=== PATIENT | female | born 1995 | race Caucasian/White ===

== ENCOUNTER 2017-01-03 05:34 | Inpatient (IN) | payer MEDICAID ==
[~2017-01-03] VITALS: Ht 167.6 cm; Wt 84.0 kg
[~2017-01-03 05:34] MED LIST: PREN1TAB77 PO
[2017-01-03] MEDS ORDERED: ACETAMINOPHEN 500 MG TABLET PO PRN ×2 (05:45→11:00)
[2017-01-03] MEDS ORDERED: LIDOCAINE 1% (10mg/ml) 2ml SDV ID PRN (05:45)
[2017-01-03] MEDS ORDERED: OXYTOCIN 30 UNIT in D5LR 500 ML PRN (05:45)
[2017-01-03] MEDS ORDERED: CALCIUM CARBONATE 500mg Chewable TAB PO PRN ×2 (05:45→11:00)
[2017-01-03] MEDS ORDERED: MAG-AL + SIM LIQUID 30 ML UDC PO PRN ×2 (05:45→11:00)
[2017-01-03 06:16] VITALS: BP 116/76; PULSE 72; RESP 16; TEMP 98; O2SAT 99
[2017-01-03 06:18] LABS: HCT - HEMATOCRIT 34.8 % (36-46); HGB - HEMOGLOBIN 11.2 GM/DL (12-16); MEAN CORPUSCULAR HGB 27.3 UUG (26-34); MEAN CORPUSCULAR HGB CONC(MCHC 32.2 GM/DL (31-37); MEAN CORPUSCULAR VOLUME 84.9 UM3 (80-100); MEAN PLATELET VOLUME 10.8 UM3 (9.4-12.4); RED BLOOD COUNT 4.1 M/MM3 (4.00-5.20); WBC - WHITE BLOOD COUNT 10.7 T/MM3 (4.5-11.0)
[2017-01-03] MEDS: LR 1,000 ML IV PRN ×2 (06:29→09:42)
[2017-01-03] MEDS ORDERED: D5LR 1,000 ML IV PRN (06:45)
[2017-01-03] MEDS ORDERED: AMPICILLIN 2 G in NORMAL SALINE 100 ML IV ONE (07:00)
--- NOTE | 2017-01-03 07:58 | ANESOB ---
Epidural/ Date/Time DATE: 01/03/17 TIME: 07:55 Preop Diagnosis , induction 39 2/7 weeks Procedure: Labor Epidural Plan: Epidural Height: 5 ' 6.00 " Weight: 84.000 kg BMI: kg/m2 Blood Pressure: 119/67 Heart Rate: 59 Respiratory Rate: 20 NPO since: 2100 P:1 Heart Rate: 131 Medications & Allergies Inpatient Medications Current Medications Medications (Trade) Dose Ordered Sig/Vanesa Start Time Stop Time Status Last Admin Dose Admin Lidocaine HCl 0.2 mg 0.2 mg PRN PRN 01/03/17 05:45 Lactated Ringer's (Lactated Ringers) 1,000 ml @ 0 mls/hr Q0M PRN 01/03/17 05:44 01/03/17 06:29 0 MLS/HR Acetaminophen (Tylenol Extra Strength) 1-2 TABS = 500-1,000 MG Q4H PRN 01/03/17 05:45 Al Hydroxide/Mg Hydroxide (Maalox) 30 ml Q4H PRN 01/03/17 05:45 Calcium Carbonate 1-2 TABS Q2H PRN 01/03/17 05:45 Dextrose/Lactated Ringer's 1,000 ml @ 0 mls/hr Q0M PRN 01/03/17 06:45 01/03/17 07:11 0 MLS/HR Oxytocin 30 unit/ Dextrose/Lactated Ringer's 503 ml @ 0 mls/hr Q0M PRN 01/03/17 05:45 01/03/17 07:11 0 MLS/HR Ampicillin Sodium/ Sodium Chloride (Ampicillin/NS) 100 ml @ 200 mls/hr Q4H 01/03/17 11:00 Vits W-Ca,Fe,FA(<1Mg) ( Vitamins) 1 Each Tablet, 1 TAB PO DAILY , (Reported) Last Taken: on 01/01/17 0800 Coded Allergies: No Known Allergies (Unverified , 01/03/17) Medical/Surgical History Anesthesia PMH: Denies: Anesthesia Reactions, Malignant Hyperthermia Smoking Status: Never smoker Does patient use chewing tobac: No Second Hand Exposure: No Substance Use Type: does not use Alcohol Intake: none Anesthesia Adverse Reactions: FOUND none Family Hx of Anesthesia Advers: none Hx of Motion Sickness: No Complications During : No Pertinent Findings Laboratory Tests 01/03/17 06:10 Physical Exam Respiratory: Lungs clear Cardiovascular: Regular rate, rhythm Airway Assessment Mallampati Score: I TMD: 3 Fingerbreadths Neck Extension: Good Overall Assessment: No Airway Concerns ASA: 2 Discussion Discussed risks/options/alternatives of anesthesia. Patient consents. Nursing pain assessment noted. Present for Discussion: Present: Family Member Attestation Statement Prior to the delivery of any anesthetic medication, I examined the patient, developed the plan, obtained the patient's consent and discussed the risk and benefits of the procedure with the patient/guardian. If the note happens to be signed after anesthesia start time, it is only due to providing efficient care of the patient and documenting at a time when the computer is available. LLOYD MALCOLM CRNA Jan 03, 2017 07:58
[2017-01-03] MEDS ORDERED: LIDOCAINE 2%/EPI 1:200,000 20ml SDV ONE (10:27)
[2017-01-03] MEDS ORDERED: OXYTOCIN 30 UNIT in D5W 500 ML IV ONE (10:52)
[2017-01-03] MEDS ORDERED: DiphenhydrAMINE 50 MG/ML INJECTION IV PRN (11:00)
[2017-01-03] MEDS ORDERED: ROPIVACAINE 1% 200 MG, SUFENTANIL 50 MCG in NORMAL SALINE 80 ML EPI PRN (11:00)
[2017-01-03] MEDS ORDERED: AMPICILLIN 1 G in NORMAL SALINE 100 ML IV SCH (11:00)
[2017-01-03] MEDS ORDERED: MILK OF MAGNESIA 30 ML SUSP PO PRN (11:00)
[2017-01-03] MEDS ORDERED: PHENYLEPHRINE RECTAL SUPPOSITORY RECTALLY PRN (11:00)
[2017-01-03] MEDS ORDERED: ONDANSETRON 4mg/2ml INJECTION IV PRN (11:00)
[2017-01-03] MEDS ORDERED: NALOXONE 0.4mg/ml INJECTION IV PRN (11:00)
[2017-01-03] MEDS ORDERED: DiphenhydrAMINE 25 MG CAPSULE PO PRN (11:00)
[2017-01-03] MEDS ORDERED: HYDROCODONE/APAP 5 mg/325 mg TABLET PO PRN (11:00)
[2017-01-03] MEDS ORDERED: HYDROCORTISONE 2.5% CREAM 30 GM RECTALLY PRN (11:00)
--- NOTE | 2017-01-03 12:31 | LDNFPDOC ---
Delivery Note Date of Delivery 01/03/17 Diagnosis: : 2 Para: 1 Rubella: Immune GBS Status: Positive Weeks: 39 Days: 2 Sex and Viability: Viable Female APGARS: Name: Catarino [place] Weight: 3030 grams Estimated Blood Loss: 400 cc Brief Description Patient is a 21 year old, 2, para 1 who presented to labor and delivery at 39 weeks 2 days for scheduled induction of labor due to logistics. Antepartum and complications included possible mild cardiomegaly (though echocardiogram was within normal limits and did not show any defects) and GBS positivity. On admission, patient was dilated to 2 centimeters. Ampicillin was started for GBS prophylaxis followed by pitocin per protocol for induction of labor. Spontaneous rupture of membranes occurred 3 hours later and patient started to feel painful contractions. Epidural anesthesia was performed at that time for analgesia. Patient progressed to complete dilation within an hour. No other complication noted. Patient remained in the labor room, was prepped and draped in the usual sterile fashion. delivered spontaneously over a very small first degree perineal laceration. There was a loose nuchal cord noted upon delivery of the head so it was easily reduced. The was placed on the patient's abdomen for [id number] after she had a good vigorous cry. The cord was clamped and cut, and the placenta spontaneously delivered without difficulty. The perineal laceration was repaired in the usual fashion using 3-0 chromic. A vaginal sweep was then performed. Hemostasis was noted. No complications. No atony. Infant and mother are doing well at this time. MIGUEL SOLOMON MD Jan 03, 2017 10:52
[2017-01-03 14:50] VITALS: BP 120/58; PULSE 77; RESP 16; O2SAT 100
--- NOTE | 2017-01-03 15:25 | NUR ---
ACTIVITY Patient ambulates to BR, tolerates well. Able to void, instructed on pericare, voiding, normal lochia flow and when to notify the nurse. Patient verbalizes understanding.
--- NOTE | 2017-01-03 15:30 | NUR ---
Epidural Epidural catheter removed without complications, tip intact, no S/S of infection noted. Area cleansed with alcohol, betadine and covered with a bandaid. Pt. educated about S/S of infection and to call doctor with concerns.
[2017-01-03] MEDS: IBUPROFEN 800 MG TABLET PO PRN (15:53)
[2017-01-03 19:06] VITALS: BP 125/66; PULSE 71; RESP 18; TEMP 98.1; O2SAT 97
[2017-01-03 23:17] VITALS: BP 122/67; PULSE 70; RESP 18; TEMP 97.8; O2SAT 97
--- NOTE | 2017-01-04 02:02 | NUR ---
Shift Summary Pt's VS stable. Fundus firm, minimal lochia, and voiding w/o difficulty. Pt tolerating po fluids and regular diet. IVSL. Pt performing cares for self and baby with help of FOB at bedside. Pt showered on this shift. Pain controlled with po pain meds as ordered, Motrin. Pt up ad leo in room. Pt attentive to needs and bonding appropriately. Pt and supplementing with similac formula. RN at bedside multiple times assisting with . Will continue to monitor per plan of care.
--- NOTE | 2017-01-04 02:02 | NUR ---
Chart Check 24 hour chart check completed
[2017-01-04] MEDS: IBUPROFEN 800 MG TABLET PO PRN ×2 (02:59→18:23)
[2017-01-04 05:33] LABS: HGB - HEMOGLOBIN 10.3 GM/DL (12-16); MEAN CORPUSCULAR HGB 27.4 UUG (26-34); MEAN CORPUSCULAR HGB CONC(MCHC 32.2 GM/DL (31-37); MEAN CORPUSCULAR VOLUME 85.1 UM3 (80-100); MEAN PLATELET VOLUME 11.4 UM3 (9.4-12.4); RED BLOOD COUNT 3.76 M/MM3 (4.00-5.20); WBC - WHITE BLOOD COUNT 14.8 T/MM3 (4.5-11.0)
--- NOTE | 2017-01-04 07:15 | PNPDOC ---
Progress Note PPD1 Weeks: 39 Days: 2 Rubella: Immune GBS: Positive Blood Type:A pos Subjective 01/04/17 Lochia: Minimal Pain: Controlled Voiding: Voiding Nausea and Vomiting: No Nausea/Vomiting Objective Vital Signs Date Time Temp Pulse Resp B/P Pulse Ox O2 Delivery O2 Flow Rate FiO2 01/03/17 23:17 97.8 70 18 122/67 97 Room Air General: Alert and Oriented Abdomen: Fundus Firm, Non-tender Edema: None Assessment SP, , GBS positive Plan Routine Care, Continue PNV MIGUEL SOLOMON MD Jan 04, 2017 07:15
[2017-01-04 07:32] VITALS: BP 128/69; PULSE 70; RESP 18; TEMP 97.5; O2SAT 98
[2017-01-04] MEDS: DOCUSATE CALCIUM 240 MG CAPSULE PO SCH (09:00)
--- NOTE | 2017-01-04 11:00 | NUR ---
CM THIS SW MET WITH PT IN ROOM. MOTHER WAS SITTING IN BED AND FOB WAS AT BEDSIDE. MATERNAL GRANDMOTHER AND FRIEND WAS ALSO PRESENT. THIS WORKER INTRODUCED SELF AND ROLE OF CASE MANAGEMENT. FAMILY IS NEW TO THE AREA SINCE OCTOBER. PARENTS REPORTED EXTENDED FAMILY FOR SUPPORT IF NEEDED. FAMILY REPORTED THAT THEY HAVE ALL NECESSARY ITEMS FOR BABY AT HOME. FAMILY WAS GIVEN INFORMATION ON [employer] AND [facility]. MOTHER IS PLANNING TO SCHEDULE APPOINTMENT WITH [facility] NEXT WEEK. THIS WORKER REVIEWED CARDIOLOGY APPOINTMENT IN [place] NEXT WEEK. PARENTS REPORT THAT THEY ARE ABLE TO MAKE THIS APPOINTMENT. QUESTIONS ANSWERED. THIS WORKER PROVIDED CONTACT INFORMATION FOR THIS WORKER AND ENCOURAGED TO CALL WITH ANY QUESTIONS OR NEEDS.
--- NOTE | 2017-01-04 13:58 | ANESPO ---
Post-Op Note Date 01/04/17 Time: 13:58 Status Pt Participated in Evaluation: Pt participated in person Vital Signs Date Time Temp Pulse Resp B/P Pulse Ox O2 Delivery O2 Flow Rate FiO2 01/04/17 07:32 97.5 70 18 128/69 98 Room Air Respiratory Function: Airway patent Cardiovascular Function: Regular pulse Telemetry Pattern: SR Mental Status: Alert/oriented Pain Level Intensity: 0 Hydration: Taking po fluids Complications during Recovery None apparent Follow-Up Instructions Instructions Per Surgeon STEVE WHITE CRNA Jan 04, 2017 13:58
[2017-01-04 14:30] VITALS: BP 134/69; PULSE 68; RESP 16; TEMP 98; O2SAT 96
--- NOTE | 2017-01-04 14:59 | NUR ---
SHIFT SUMMARY VSS. FUNDUS FIRM, MINIMAL LOCHIA. DENIES PAIN, NO PAIN MEDS GIVEN ON SHIFT. PATIENT PERFORMS SELF CARES. BOTTLE FEEDING, SIMILAC ADVANCED. PROVIDED ALL CARES FOR BABY.
[2017-01-04 18:10] VITALS: BP 134/67; PULSE 69; RESP 14; TEMP 98
[2017-01-04 23:12] VITALS: BP 131/70; PULSE 58; RESP 14; TEMP 98.1
--- NOTE | 2017-01-05 02:24 | NUR ---
Chart Check 24 hour chart check completed
--- NOTE | 2017-01-05 02:26 | NUR ---
SHIFT SUMMARY: VSS, pt's pain controlled with PO Motrin. Fundus firm at umbilicus, light lochia. Pt showered with evening and performing own personal cares. Up ad leo, voiding and consuming general diet. Family here and supportive. Caring and bonding with baby appropriately.
[2017-01-05 04:15] VITALS: BP 128/82; PULSE 64; RESP 14; TEMP 98; O2SAT 98
[2017-01-05] MEDS: DOCUSATE CALCIUM 240 MG CAPSULE PO SCH (09:00)
[2017-01-05] MEDS: IBUPROFEN 800 MG TABLET PO PRN (09:07)
--- NOTE | 2017-01-05 09:08 | NUR ---
PATIENT DECLINES STOOL SOFTENER STATES SHE HAS BEEN HAVING NORMAL BOWEL MOVEMENTS SINCE DELIVERY.
--- NOTE | 2017-01-05 09:09 | NUR ---
PAIN MED IBUPROFEN 800MG 1 TAB PO FOR ABDOMINAL CRAMPING @ LEVEL 4.
--- NOTE | 2017-01-05 11:00 | PNPDOC ---
Progress Note PPD2 Weeks: 39 Days: 2 Rubella: Immune GBS: Positive Blood Type:A pos Subjective 01/05/17 Lochia: Minimal Pain: Controlled Voiding: Voiding Nausea and Vomiting: No Nausea/Vomiting Objective Vital Signs Date Time Temp Pulse Resp B/P Pulse Ox O2 Delivery O2 Flow Rate FiO2 01/05/17 04:15 98.0 64 14 128/82 98 Room Air General: Alert and Oriented Abdomen: Fundus Firm, Non-tender Assessment SP, Plan Routine Care, Discharge Home, Continue PNV MIGUEL SOLOMON MD Jan 05, 2017 11:00
[2017-01-05] MEDS ORDERED: IBUP-1547 PO (11:01)
--- NOTE | 2017-01-05 11:55 | NUR ---
DISCHARGE REVIEW PRINTED DISCHARGE INSTRUCTIONS GIVEN TO PATIENT AND INTERVENTIONS PER [employer]. INDICATES UNDERSTANDING THROUGH DISCUSSION. PATIENT SIGNED SIGNATURE PAGE. DISCHARGED AMBULATORY IN GOOD CONDITION WITH AND FAMILY MEMBER WITH BABY CARRIED PER CAR SEAT BY FAMILY MEMBER IN CAR SEAT ACCOMPANIED BY [facility] [place]. Addendum: 01/05/17 at 1350 by TAMICA CRUZ RN PATIENT AWARE AND PLANS TO CALL FOR FOLLOW UP APPOINTMENT. TELEPHONE NUMBER AND INSTRUCTION IS ON PRINTED DISCHARGE INSTRUCTIONS.
== END 2017-01-05 11:55 | disposition home or self-care (01) | DRG 775 ==
LOC: MC 05:34
PROVIDERS: ADMIT Obstetrics & Gynecology; ATTEND Obstetrics & Gynecology
PROC: 10E0XZZ Delivery of Products of Conception, External Approach (ICD-10-PCS; principal; 2017-01-03)
PROC: 3E033VJ Introduction of Other Hormone into Peripheral Vein, Percutaneous Approach (ICD-10-PCS; 2017-01-03)
PROC: 0HQ9XZZ Repair Perineum Skin, External Approach (ICD-10-PCS; 2017-01-03)
DX: O26.893 Other specified pregnancy related conditions, third trimester (principal); O70.0 First degree perineal laceration during delivery; O69.81X0 Labor and delivery complicated by cord around neck, without compression, not applicable or unspecified; O99.824 Streptococcus B carrier state complicating childbirth; Z3A.39 39 weeks gestation of pregnancy; Z37.0 Single live birth
CPT/HCPCS: 36415; 85027